=== PATIENT | female | born 1980 | race Caucasian/White ===

== ENCOUNTER → 2016-08-29 | Outpatient (CLI) | payer OTHER ==
--- NOTE | 2016-08-29 16:30 | KCIC ---
EXAM: MRI right tibia/fibula without contrast. HISTORY: Right wilder pain after running. TECHNIQUE: MRI of the right tibia/fibula was performed without intravenous contrast. COMPARISON: None. FINDINGS: A skin marker is placed at the site of pain along the right mid wilder. Underlying this, there is periosteal edema anteriorly, with mild overlying subcutaneous edema. There is mild marrow edema along the medial aspect of the medullary cavity. There is mild associated marrow T1 hypointensity without a fracture line. There is no muscular edema. There is no fibular edema. The visualized portions of the ankle are unremarkable. IMPRESSION: 1. Grade 3 stress reaction along the right mid tibial diaphysis. No fracture lines detectable. Follow-up through resolution is recommended. Electronically signed by: Edgard Sinha MD (08/29/2016 4:26 PM)
== END | disposition home or self-care (01) ==
LOC: KCIC MRI 15:22
PROVIDERS: ATTEND Family Medicine
DX: F43.9 Reaction to severe stress, unspecified (principal)
CPT/HCPCS: 73718